=== PATIENT | female | born 1980 | race Caucasian/White ===

== ENCOUNTER 2016-05-05 22:34 | Inpatient (IN) ==
[2016-05-05] MEDS ORDERED: LACTATED RINGERS 2,000 ML IV ONE (22:55)
--- NOTE | 2016-05-05 23:10 | Emergency Department Note ---
Farhat Padilla Brittany, am scribing for, and in the presence of, Randy Alonzo MD 22:58. Clinton Padilla Robert M, MD, personally performed the services described in this documentation, ascribed by Milka Dougherty in my presence, and it is both accurate and complete . Arrival - Arrival Chief Complaint: Seizure Stated Complaint: sepsis ED Nursing Triage Note: pt transferred here from [facility] for seizures times 2 and possible sepsis. pt had an iud removed [address] rogers and has been on augmentin then today turned red all over body and started seizing. Mode of Arrival: Ambulatory Limitations: No Limitations Source: Patient, RN Notes Reviewed - History of Present Illness HPI Narrative: Patient is a 36 y/o white female presenting to the ED by EMS from [facility] for seizures and possible sepsis. Patient had IUD removed about a week ago per Dr. Rogers and has been on Augmentin. Patient today, became erythematous all over and began to start seizing. and family thinks that current symptoms may be an allergic reaction and are very concerned. He states that patient had IUD removed because it had been 10 years since placement and "it was time to come out." He reports that since removal of IUD patient has not been herself. He notes that after IUD removal patient had a pap smear that was abnormal and is concerned that this may have contributed to current situation. He reports that patient has had a fever with this at a high of 103. In room patient is hypotensive with blood pressure of 63/38 and is tachycardic with a heart rate of 105 beats per minute. Patient has a history of seizures and is on Topamax for this. No other complaint/pain in the ED at this time. Allergies/Adverse Reactions: Allergies Allergy/AdvReac Type Severity Reaction Status Date / Time carbamazepine [From Tegretol] Allergy Severe Hypotension Verified 12/24/15 09:00 meclizine [From Antivert] Allergy Severe Swelling Verified 12/24/15 09:00 of Lip/Tongue/Throat morphine Allergy Severe Swelling Verified 12/24/15 09:00 of Lip/Tongue/Throat Penicillins Allergy Severe RASH Verified 12/24/15 09:00 phenobarbital Allergy Severe Hypotension Verified 12/24/15 09:00 phenytoin [From Dilantin] Allergy Severe Hypotension Verified 12/24/15 09:00 [employer] AdvReac Hypotension Uncoded 12/31/14 10:08 Review of System - Review of System 12 point system: reviewed and no additional remarkable complaints except as stated - Review of System Constitutional: Present: fever Skin: Present: change in color (erythematous) Neurological: Present: other (seizures x2) Medical,Surgical,& Family Hx - Medical History Neurology: History of: Seizures - Social History Smoking Status: Unknown if ever smoked Frequency of Alcohol Use: Unknown Type of Drug Use: Unknown Exam Vital Signs: Vital Signs Temperature 98.4 F 05/05/16 22:35 Pulse Rate 109 H 05/05/16 22:35 Respiratory Rate 20 05/05/16 22:54 Blood Pressure 62/36 05/05/16 22:35 O2 Sat by Pulse Oximetry 100 05/05/16 22:35 - General General appearance: alert, in no apparent distress - Head Head exam: Present: atraumatic, normocephalic - Eye Eye exam: Present: PERRL, EOMI - ENT ENT exam: Present: mucous membranes moist, TM's normal bilaterally - Neck Neck exam: Present: full ROM, trachea midline. Absent: tenderness - Chest Chest inspection: Present: symmetric chest wall rise. Absent: tenderness - Respiratory Respiratory exam: Present: normal lung sounds bilaterally. Absent: rales, rhonchi, wheezes - Cardiovascular Cardiovascular exam: Present: normal rhythm, tachycardia, normal heart sounds, other (hypotensive bp 63/38). Absent: regular rate, murmur, rubs, gallop - Abdominal Exam Abdominal exam: Present: soft, normal bowel sounds. Absent: distention, tenderness - Extremities Exam Extremities exam: Present: full ROM. Absent: tenderness - Back Exam Back exam: Present: full ROM. Absent: tenderness - Neurological Exam Neurological exam: Present: alert, oriented X3, CN II-XII intact. Absent: motor sensory deficit - Psychiatric Psychiatric exam: Present: normal affect, normal mood - Skin Skin exam: Present: warm, dry, intact, rash (general diffuse erythematous rash ) , erythema. 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 The paramedics were hesitant to start pressors because all pressures contained a phenol ring. This being said, she received epinephrine intravenously at [facility] and this does not seem to have caused any long-term issues. She does have a diffusely spread reddened rash which I feel is more likely toxic shock syndrome related/sepsis than an allergic reaction. Time: 23:07 Results - Labs Lab Results: I have reviewed the patients labs Labs: Lactic Acid 7.8 MMOL/L (0.4-2.0) H 05/05/16 00:17 Critical Care Time Critical Care Time: Yes Total Critical Care Time: 47 Disposition Clinical Impression: Sepsis, Epileptic seizure, Hypotension Case discussed with: patient, patient's family Disposition: Still a Patient Condition: Stable Time of Disposition: 23:09
[2016-05-05] MEDS ORDERED: NOREPINEPHRINE 4 MG/4 ML VIAL IV ONE (23:17)
[2016-05-05] MEDS: NOREPINEPHRINE 8 MG in SODIUM CHLORIDE 0.9% 242 ML IV SCH (23:35)
[2016-05-05] MEDS ORDERED: LORazepam 2 MG/1 ML VIAL ONE (23:52)
--- NOTE | 2016-05-06 01:04 | Hospitalist History & Physical ---
Assessment and Plan (1) Septic shock Status: Acute Current Visit: Yes (2) Sepsis Status: Acute Current Visit: Yes (3) Epileptic seizure Status: Acute Current Visit: Yes (4) Hypotension Status: Acute Assessment and plan: Plan for this patient #1 admit the patient to ICU #2 treat his septic shock. She is received several liters of fluid from both our hospital and [facility] #3 IV antibiotics #4 Transvaginal ultrasound stat #5 CT scan without contrast on her way to the unit #6 infectious disease consult Current Visit: Yes History of Present Illness Chief complaint: transfer from outside hospital for sepsis History of present illness: Ms. Cuellar is a 36 year old female with history significant for seizure and thyroid disorder presents to our hospital as a transfer from [facility]. Reviewing the history with the family patient had IUD removed 1 week ago. According to her friends she had had made comments about some bleeding out of her vagina and some tissue that had been coming out. Patient has not really had any complaints about abdominal pain. She reports having had some sinus issues. And she took 1 Augmentin yesterday. She did not realize that she had a pin Cillo allergy and that Augmentin was penicillin but she only took 1 pill. She woke up Monday morning it to 30 she was throwing up and had diarrhea. She went to her primary care doctor and was given atria and told she had a viral infection. She was sent back home her family checked her blood pressure and it was 67/49 with a pulse of 150. couldn't [facility]. And at [facility] a pulse of 157 was documented with a temperature of 101. O2 sats are stable at 96% and have been stable while patient's been up to our hospital. Patient was given 3 L bolus up at [facility]. She was also given Solu- Medrol therapy Benadryl and Valium. She was started on normal saline at 250 mL an hour. When she arrives up here patient was given 2 L bolus of lactated Ringer's. We've had put the patient on pressors. I've ordered a vaginal ultrasound given the recent history of an IUD removal. Blood cultures were drawn at the outside facility and a lactate level was elevated. Patient had a CT scan scan of her head because she had a seizure at the outside facility. It was normal she does have a history of seizures and is on Topamax I was consulted to admit the patient. Patient appears to be in septic shock. Allergies Allergy/AdvReac Type Severity Reaction Status Date / Time carbamazepine [From Tegretol] Allergy Severe Hypotension Verified 12/24/15 09:00 meclizine [From Antivert] Allergy Severe Swelling Verified 12/24/15 09:00 of Lip/Tongue/Throat morphine Allergy Severe Swelling Verified 12/24/15 09:00 of Lip/Tongue/Throat Penicillins Allergy Severe RASH Verified 12/24/15 09:00 phenobarbital Allergy Severe Hypotension Verified 12/24/15 09:00 phenytoin [From Dilantin] Allergy Severe Hypotension Verified 12/24/15 09:00 [employer] AdvReac Hypotension Uncoded 12/31/14 10:08 Medical,Surgical,& Family Hx - Medical History Neurology: History of: Seizures - Surgical History Reproductive Surgeries: Surgical HX of;: Section - Family History Family History: Reports;: Family Diabetes, Family Heart Disease, Family Hypertension - Social History Smoking Status: Unknown if ever smoked Frequency of Alcohol Use: Unknown Type of Drug Use: Unknown 12 point system: reviewed and no additional remarkable complaints except as stated Exam - Constitutional Vitals: Period Temp Pulse Resp BP Sys/Bartlett Pulse Ox Last 24 Hr 98.4 F 109 17-20 62/36 100 - General General appearance: Clearly sick and toxic appearing - Head Head exam: Present: atraumatic, normocephalic - Eye Eye exam: Present: PERRL, EOMI - ENT ENT exam: Present: mucous membranes moist, TM's normal bilaterally - Neck Neck exam: Present: full ROM, trachea midline. Absent: tenderness - Chest Chest inspection: Present: symmetric chest wall rise. Absent: tenderness - Respiratory Respiratory exam: Present: normal lung sounds bilaterally. Absent: rales, rhonchi, wheezes - Cardiovascular Cardiovascular exam: Present: normal rhythm, tachycardia, normal heart sounds - Abdominal Exam Abdominal exam: Present: soft, normal bowel sounds. Absent: distention, tenderness - Extremities Exam Extremities exam: Present: full ROM. Absent: tenderness - Back Exam Back exam: Present: full ROM. Absent: tenderness - Neurological Exam Neurological exam: Present: alert, oriented X3, CN II-XII intact. Absent: motor sensory deficit - Psychiatric Psychiatric exam: Present: normal affect, normal mood - Skin Skin exam: Present: warm, dry, intact, rash more located on the center of her chest, erythema. Absent: normal color Results - Labs Labs: Labs from outside facility glucose 171 BUN 18 creatinine 2.1 calcium 8.2 sodium 131 potassium 3.7 chloride 99 bicarbonate 10 and I'll get 26.2 urinalysis negative nitrites trace leukocytes white count 26.8 hemoglobin 12.9 hematocrit 39.5 platelets 295
[2016-05-06] MEDS ORDERED: LORazepam 2 MG/1 ML VIAL IV STA (01:12)
[2016-05-06] MEDS ORDERED: ALBUTEROL 2.5 MG/3 ML NEB RESP TX PRN (01:15)
[2016-05-06] MEDS ORDERED: LORazepam 2 MG/1 ML VIAL IV PRN (01:28)
[2016-05-06] MEDS ORDERED: ONDANSETRON 4 MG/2 ML VIAL IV PRN (01:29)
[2016-05-06 02:23] LABS: ABG Base Excess -10.8 MMOL/L (-2.5-2.5); ABG Oxygen Saturation 98.8 % (95-100); ABG PCO2 28.8 MM HG (35-48); ABG PH 7.306 (7.35-7.45); ABG TCO2 12.9 MMOL/L (23-27)
[2016-05-06] MEDS: SODIUM CHLORIDE 0.9% 1,000 ML IV SCH ×7 (03:00→23:19)
[2016-05-06] MEDS: AZTREONAM 2,000 MG in SODIUM CHLORIDE 0.9% 100 ML IV SCH ×3 (03:20→12:01)
[2016-05-06] MEDS: PANTOPRAZOLE 40 MG VIAL IV SCH (03:26)
[2016-05-06] MEDS ORDERED: VANCOMYCIN INJ 1,500 MG in SODIUM CHLORIDE 0.9% 500 ML IV ONE (04:00)
[2016-05-06 05:48] LABS: Basophils % 0.1 % (0.0-0.8); Eosinophils % 0.1 % (0.00-10.9); Hematocrit 28.8 VOL% (35.7-47.0); Hemoglobin 9.3 GM/DL (12.0-16.0); Immature Granulocytes % 0.9 %; Immature Granulocytes Absolute 0.17 #; Lymphocytes # 0.3 10*3/uL (1.4-4.0); Lymphocytes % 1.6 % (21.3-54.2); Mean Corpuscular HGB Conc 32.3 GM/DL (32-36); Mean Corpuscular Hemoglobin 28 PG (27-34); Mean Corpuscular Volume 87.8 FL (87-102); Mean Platelet Volume 11.3 FL (9.6-12.0); Monocytes # 0.3 10*3/uL (0.11-0.8); Monocytes % 1.4 % (1.7-12.7); Neutrophils # 17.4 10*3/uL (1.4-7.4); Neutrophils % 95.9 % (38.7-73.9); Platelet Count 184 10*3/uL (130-400); Red Blood Count 3.28 10*6/uL (3.8-5.5); White Blood Count 18.2 10*3/uL (4.5-13.71)
[2016-05-06 05:58] LABS: INR 1.3; PT Patient Result 14.2 SECS
[2016-05-06 06:26] LABS: Band Neutrophils 7 % (0-10); Burr Cells Slight; Elliptocytes Few; Hypochromasia 1+; Lymphocytes 1 % (20-55); Platelet Estimate Normal; Segmented Neutrophils 92 % (50-85); Total Cells Counted 100
--- NOTE | 2016-05-06 06:37 | Ultrasound Report ---
US transvaginal Indication: IUD removal 3 days ago. Sepsis. Pelvic ultrasound: Initial transabdominal images followed with endovaginal imaging the bladder CA retroverted uterus. Uterus is 61 x 36 x 43 mm. There is fluid in the endometrial canal. Endometrial stripe thickness is 6 mm. 3 mm nabothian cyst identified as well. No foreign object seen on ultrasound. The right ovary is 29 x 17 x 26 mm containing a 17 mm simple cyst. Left ovary is 21 x 15 x 14 mm with normal-appearing follicles. Color Doppler flow is present bilaterally. Small amount of free fluid in the cul-de-sac noted. Impression: 1. Fluid in the endometrial canal. 2. Small amount of free fluid in the pelvis. 3. Right ovarian cyst. PROCEDURE INTERPRETED AT [facility] DEPARTMENT OF RADIOLOGY Final Report Signed by: Robinson You M.D.
--- NOTE | 2016-05-06 06:44 | CT Report ---
CT abdomen pelvis wo con Indication: Sepsis. CT ABDOMEN AND PELVIS WITHOUT CONTRAST DLP: 453 mGy*cm Comparison: None. Technique: Axial noncontrast CT images of the abdomen and pelvis were obtained. Abdomen: Normal heart size. Peripheral opacification of the posterior right lung base noted, either atelectasis or early pneumonia. Pleural spaces are clear. Multiple mixed calcified and cholesterol gallstones noted. Gallbladder is modestly distended. Unenhanced liver, pancreas, adrenal glands and spleen are within normal limits. At least 3 stones are present in the left kidney, largest is 2 mm diameter. Left kidney is nonobstructed. On the right, no nephrolithiasis is shown at the right kidney is minimally hydronephrotic. Right ureter is normal in size. No ureter calculi seen on either side. There is a Sams catheter present in the bladder which is decompressed. No bowel obstruction. No lymphadenopathy. Pelvis: Normal appendix without inflammation. Rectosigmoid colon is within normal limits. By CT, the uterus and adnexal structures appear unremarkable. Trace amount of free fluid identified in the pelvis on recent ultrasound is not seen on CT. Impression: 1. Minimal right hydronephrosis without hydroureter. Query recently passed stone. No significant perinephric inflammation. 2. Nonobstructing left kidney stones. 3. Cholelithiasis with mildly distended gallbladder. PROCEDURE INTERPRETED AT [facility] DEPARTMENT OF RADIOLOGY Final Report Signed by: Robinson You M.D.
--- NOTE | 2016-05-06 06:44 | XRay Report ---
XR chest 1V portable Indication: Sepsis. Chest one view: Comparison 05/05/16. Heart size remains normal with normal mediastinal contour. No new infiltrates are shown. Lungs are somewhat hypoinflated with pulmonary vascular crowding centrally. Impression: Mild pulmonary hypoinflation. PROCEDURE INTERPRETED AT [facility] DEPARTMENT OF RADIOLOGY Final Report Signed by: Robinson You M.D.
[2016-05-06 07:54] LABS: Lactic Acid 1.1 MMOL/L (0.4-2.0)
[2016-05-06 07:55] LABS: Alanine Aminotransferase 18 U/L (13-56); Albumin 2.3 G/DL (3.4-5.0); Alkaline Phosphatase 49 U/L (45-117); Aspartate Amino Transferase 19 U/L (0-37); Bilirubin,Total < 0.39 MG/DL (0.2-1.0); Blood Urea Nitrogen 13 MG/DL (7-18); Calcium 6.8 MG/DL (8.5-10.1); Glucose 132 MG/DL (74-106); Osmolality,Calculated 293.4 MOS/KG (273-304); Potassium 4.1 MMOL/L (3.5-5.1); Sodium 147 MMOL/L (136-145); Total Protein 4.7 G/DL (6.4-8.3)
[2016-05-06] MEDS: LEVOTHYROXINE 75 MCG TABLET PO SCH (09:40)
[2016-05-06] MEDS: TOPIRAMATE 100 MG TABLET PO SCH ×2 (09:40→20:20)
--- NOTE | 2016-05-06 10:40 | Hospitalist Progress Note ---
Assessment and Plan - Time spent with patient Time spent with patient: Greater than 30 minutes (1) Septic shock Status: Acute Assessment and plan: Source is unknown at this time. CT Abdomen pelvis is not very telling. CXray is unremarkable. UA pending. Possible source. ID consult pending. Obtain UA/UCx. Current Visit: Yes (2) Epileptic seizure Status: Acute Assessment and plan: Continue home medications. Current Visit: Yes Hospitalist: Subjective Interval history: No complaints currently, feeling much better. She was admitted overnight with sepsis to the ICU, requires pressor support still. Exam - Constitutional Vitals: Period Temp Pulse Resp BP Sys/Bartlett Pulse Ox Last 24 Hr 98.4 F 70-101 13-20 73-98/41-68 97-100 General appearance: no acute distress - Head Head exam: Present: normocephalic, atraumatic - Eye Eye exam: Present: EOMI Pupils: Present: LINDSAY - ENT ENT exam: Present: normal exam - Neck Neck exam: Present: normal inspection - Respiratory Respiratory exam: Present: clear to auscultation bilaterally. Absent: rhonchi, wheezes - Cardiovascular Cardiovascular exam: Present: regular rate and rhythm. Absent: gallop, rubs, systolic murmur - GI/Abdominal GI/Abdominal exam: Present: normal bowel sounds, soft. Absent: distended, firm , guarding, tenderness, rebound - Extremities Exam Extremities exam: Present: normal inspection. Absent: calf tenderness, edema Results - Labs CBC & BMP: 05/06/16 04:26 05/06/16 07:02 Lab Results: I have reviewed the past 24 hour labs
--- NOTE | 2016-05-06 10:45 | Infectious Disease Consult ---
Assessment and Plan (1) Epileptic seizure Status: Acute Current Visit: Yes (2) Hypotension Status: Acute Assessment and plan: IT could be due to sepsis however no focus of infection obvious on questioning her or from examination. She says her normal BP is about 90/60 so we may be able to stop the pressors and monitor. Recommendations: Continue empiric antibiotics pending results of cultures. if her blood cultures end up being negative, then we will be able to stop the antibiotics. Current Visit: Yes (3) Septic shock Status: Acute Assessment and plan: I am not sure yet that she is septic. She does have leukocytosis but that could be a stress response. her presentation could just be related to a severe allergic rxn to PCN. Agree with empiric antibiotics and we will see what the cultures show. Current Visit: Yes History of Present Illness Chief complaint: Sepsis History of present illness: Ms. Cuellar is a 36 year old female admitted last night with fever and hypotension. She was well until 3 days ago when she started having "sinus trouble" with runny nostrils and post nasal drip. She took Augmentin 2 days ago and later in the day developed fever, low blood pressure and redness over her body. She sought medical attn and was given IVF; she was told she had an allergic rxn. After she went back home however her BP got low again to 40/20 and she had fever to 103 so she came to the ER. She was admitted to ICU due to persisting hypotension requiring pressors. She said she had fever in ER but none since in ICU. She has no more "sinus problems " denying cough, SOB, headache; also no N, V. D and her appetite is fairly ok. No irritative urinary symptoms. She had her IUD removed 1 week ago, but has not had vaginal discharge or foul odor of pelvic pain. Home Medications Medication Instructions Recorded Confirmed Type Levothyroxine Tab [Synthroid Tab] 75 mcg PO DAILY@0700 05/06/16 05/06/16 History Topiramate [Topamax] 100 mg PO BID 05/06/16 05/06/16 History Allergies Allergy/AdvReac Type Severity Reaction Status Date / Time carbamazepine [From Tegretol] Allergy Severe Hypotension Verified 12/24/15 09:00 meclizine [From Antivert] Allergy Severe Swelling Verified 12/24/15 09:00 of Lip/Tongue/Throat morphine Allergy Severe Swelling Verified 12/24/15 09:00 of Lip/Tongue/Throat Penicillins Allergy Severe RASH Verified 12/24/15 09:00 phenobarbital Allergy Severe Hypotension Verified 12/24/15 09:00 phenytoin [From Dilantin] Allergy Severe Hypotension Verified 12/24/15 09:00 [employer] AdvReac Hypotension Uncoded 12/31/14 10:08 12 point system: reviewed and no additional remarkable complaints except as stated (she had 3 seizures over the pas 24hrs. rest of comprehensive ROS negatgive apart from what was mentioned in HPI) Medical,Surgical,& Family Hx - Medical History Neurology: History of: Seizures Endocrine: History of: Thyroid Disorder Genitourinary: History of: Recurring Urinary Tract Infections Gastrointestinal: History of: GI Problems Musculoskeletal: History of: Back/Neck Problems, Herniated Disk Reproductive: History of: Abnormal Pap Smear Other: History of: Anaphylaxis Comment Only: Miscellaneous Medical Problems (allergic reactions) - Surgical History Thoracic Surgeries: Patient denies;: Lobectomy Neurologic Surgeries: Patient denies: Neurologic Surgery Abdominal Surgeries: Patient denies: Abdominal Surgery, Splenectomy Reproductive Surgeries: Surgical HX of;: Section - Family History Family History: Reports;: Family Diabetes, Family Heart Disease, Family Hypertension - Social History Smoking Status: Unknown if ever smoked Frequency of Alcohol Use: Unknown Type of Drug Use: Unknown Infectious Disease Exam H&P - Constitutional Vitals: Vital Signs Temp Pulse Resp BP Pulse Ox 98.4 F 95 H 14 93/57 98 05/06/16 02:32 05/06/16 06:58 05/06/16 10:00 05/06/16 06:58 05/06/16 06:58 Intake and Output 05/05/16 05/06/16 05/06/16 23:59 07:59 15:59 Intake Total 70 / 70 1580 / 1580 Output Total 1115 / 1165 Balance -1045 / -1095 1580 / 1580 Intake: IV 70 / 70 1580 / 1580 Levophed 8 mg In Ns 242 70 / 70 80 / 80 ml @ 2 MCG/MIN 3.75 mls/ hr IV TITRATE JAEL Rx#: [id number] Ns 1,000 ml @ 200 mls/hr 1000 / 1000 IV .Q5H JAEL Rx#: [id number] Vancomycin Inj 1,000 mg 500 / 500 In Ns 500 ml @ 250 mls/hr IV ONCE ONE Rx#: [id number] Output: Urine 1115 / 1115 Other: Voiding Method Indwelling Catheter Weight 78.653 kg Patient Weight 05/06/16 23:59 Weight 78.653 kg Exam: General: Patient comfortable, non-toxic appearing HEENT: Mucous membranes pink and moist, anicteric acyanotic, eyes a but puffy, LINDSAY, no oropharyngeal exudates Neck: Supple, no thyroid gland enlargement, no lymphadenopathy Respiratory system: Breath sounds vesicular, no crepitations or wheezes Cardiovascular: Normal S1 and S2, no murmurs appreciated Abdomen: Normal bowel sounds, soft nontender throughout, no organomegaly or mass Genitourinary: No suprapubic pain or bladder distention Extremities: no edema Skin: diffuse erythroderma mainly involving trunk and thighs Reports - Labs CBC & BMP: 05/06/16 04:26 05/06/16 07:02 Labs: Laboratory Results - last 24 hr 05/06/16 05/06/16 05/06/16 02:07 04:26 04:26 WBC 18.2 H RBC 3.28 L Hgb 9.3 L Hct 28.8 L MCV 87.8 MCH 28 MCHC 32.3 RDW 14.0 Plt Count 184 MPV 11.3 Neut % (Auto) 95.9 H Lymph % (Auto) 1.6 L [place] % (Auto) 1.4 L Eos % (Auto) 0.1 Baso % (Auto) 0.1 Neut # (Auto) 17.4 H Lymph # (Auto) 0.3 L [place] # (Auto) 0.3 Eos # (Auto) 0.0 Baso # (Auto) 0.0 Total Counted 100 Immature Gran % 0.9 Nucleated RBC % 0.0 Immature Gran # 0.17 Segmented Neutrophils 92 H Band Neutrophils 7 Lymphocytes 1 L Nucleated RBCs # 0.00 Platelet Estimate Normal Hypochromasia 1+ Melissa Cells Slight Elliptocytes Few Morphology Comment INR PT Patient/Control Mix ABG pH 7.306 L ABG pCO2 28.8 L ABG pO2 143.0 H ABG HCO3 16.0 L ABG Total CO2 12.9 L ABG O2 Saturation 98.8 ABG Base Excess -10.8 L FiO2 28.00 Sodium Potassium Chloride Carbon Dioxide Anion Gap BUN Creatinine GFR Calculation BUN/Creatinine Ratio Glucose Calculated Osmolality Lactic Acid 1.2 Calcium Total Bilirubin AST ALT Alkaline Phosphatase Total Protein Albumin Globulin Albumin/Globulin Ratio 05/06/16 05/06/16 04:26 07:02 WBC RBC Hgb Hct MCV MCH MCHC RDW Plt Count MPV Neut % (Auto) Lymph % (Auto) [place] % (Auto) Eos % (Auto) Baso % (Auto) Neut # (Auto) Lymph # (Auto) [place] # (Auto) Eos # (Auto) Baso # (Auto) Total Counted Immature Gran % Nucleated RBC % Immature Gran # Segmented Neutrophils Band Neutrophils Lymphocytes Nucleated RBCs # Platelet Estimate Hypochromasia Melissa Cells Elliptocytes Morphology Comment INR 1.3 PT Patient/Control Mix 14.2 ABG pH ABG pCO2 ABG pO2 ABG HCO3 ABG Total CO2 ABG O2 Saturation ABG Base Excess FiO2 Sodium 147 H Potassium 4.1 Chloride 121 H Carbon Dioxide 14 L Anion Gap 16.1 H BUN 13 Creatinine 0.90 GFR Calculation 91 BUN/Creatinine Ratio 14.00 Glucose 132 H Calculated Osmolality 293.4 Lactic Acid 1.1 Calcium 6.8 L Total Bilirubin < 0.39 AST 19 ALT 18 Alkaline Phosphatase 49 Total Protein 4.7 L Albumin 2.3 L Globulin 2.4 Albumin/Globulin Ratio 0.9 L - Diagnostic Findings Procedure: Chest x-ray: report reviewed by me (unremarkable), CT Abdomen and Pelvis: report reviewed by me (unremarkable except mild Rt hydronephrosis without hydroureter), Ultrasound: report reviewed by me (pelvic US unremarkable)
[2016-05-06 12:30] LABS: Apearance,Urine CLEAR (Clear); Bacteria,Urine Occasional /HPF (Few); Bilirubin,Urine Negative (Negative); Blood, Urine Negative (Negative); Glucose,Urine (UA) Negative (Negative); Ketones,Urine Negative (Negative); Mucus,Urine Occasional /LPF (Occasional); Nitrite,Urine Negative (Negative); Protein,Urine Negative; Urine Color Yellow (Yellow); Urine Specific Gravity 1.013 (1.001-1.035); Urine Urobilinogen < 2.0 EU/DL (0.2-1.0); WBC,Urine 1 /HPF (0-6)
[2016-05-06] MEDS ORDERED: diphenhydrAMINE 50 MG/1 ML VIAL ONE (14:23)
[2016-05-06] MEDS ORDERED: diphenhydrAMINE 50 MG/1 ML VIAL IV ONE (14:39)
[2016-05-06] MEDS: ACETAMINOPHEN 325 MG TABLET PO PRN ×2 (15:03→20:20)
[2016-05-06] MEDS: HYDROCORTISONE 100 MG VIAL IV SCH ×2 (15:45→22:49)
[2016-05-06] MEDS: VANCOMYCIN INJ 1,000 MG in SODIUM CHLORIDE 0.9% 250 ML IV SCH (18:24)
[2016-05-06] MEDS: NOREPINEPHRINE 8 MG in SODIUM CHLORIDE 0.9% 242 ML IV SCH ×2 (18:25→23:57)
[2016-05-06] MEDS: IBUPROFEN 800 MG TABLET PO PRN (18:52)
[2016-05-06] MEDS: diphenhydrAMINE CAP 25 MG CAPSULE PO PRN (19:45)
[2016-05-06] MEDS: FAMOTIDINE INJ 40 MG in SODIUM CHLORIDE 0.9% 100 ML IV SCH (21:05)
[2016-05-06] MEDS: CETIRIZINE 10 MG TABLET PO SCH (21:42)
[2016-05-07] MEDS: PANTOPRAZOLE 40 MG VIAL IV SCH (04:00)
[2016-05-07] MEDS: VANCOMYCIN INJ 1,000 MG in SODIUM CHLORIDE 0.9% 250 ML IV SCH ×2 (04:02→17:28)
[2016-05-07] MEDS: SODIUM CHLORIDE 0.9% 1,000 ML IV SCH ×4 (04:02→14:46)
[2016-05-07] MEDS: NOREPINEPHRINE 8 MG in SODIUM CHLORIDE 0.9% 242 ML IV SCH (06:18)
[2016-05-07] MEDS: LEVOTHYROXINE 75 MCG TABLET PO SCH (06:18)
[2016-05-07] MEDS: HYDROCORTISONE 100 MG VIAL IV SCH ×3 (07:00→22:30)
[2016-05-07 08:22] LABS: Basophils % 0.1 % (0.0-0.8); Eosinophils # 0.6 10*3/uL (0.0-0.87); Eosinophils % 3.3 % (0.00-10.9); Hematocrit 28.7 VOL% (35.7-47.0); Hemoglobin 9.3 GM/DL (12.0-16.0); Immature Granulocytes % 1.3 %; Immature Granulocytes Absolute 0.22 #; Lymphocytes # 0.2 10*3/uL (1.4-4.0); Lymphocytes % 1.3 % (21.3-54.2); Mean Corpuscular HGB Conc 32.4 GM/DL (32-36); Mean Corpuscular Hemoglobin 29 PG (27-34); Mean Platelet Volume 10.6 FL (9.6-12.0); Monocytes # 0.1 10*3/uL (0.11-0.8); Monocytes % 0.3 % (1.7-12.7); Neutrophils # 16.2 10*3/uL (1.4-7.4); Neutrophils % 93.7 % (38.7-73.9); Platelet Count 151 10*3/uL (130-400); Red Blood Count 3.26 10*6/uL (3.8-5.5); Red Cell Distribution Width 14.6 % (9.3-17.3); White Blood Count 17.2 10*3/uL (4.5-13.71)
[2016-05-07 09:01] LABS: Albumin 2.1 G/DL (3.4-5.0); Bilirubin,Total 0.7 MG/DL (0.2-1.0); Calcium 6.7 MG/DL (8.5-10.1); Osmolality,Calculated 295.3 MOS/KG (273-304); Potassium 3.5 MMOL/L (3.5-5.1); Total Protein 4.4 G/DL (6.4-8.3)
[2016-05-07] MEDS: IBUPROFEN 800 MG TABLET PO PRN (09:10)
[2016-05-07] MEDS: diphenhydrAMINE CAP 25 MG CAPSULE PO PRN ×3 (09:11→20:31)
[2016-05-07] MEDS: TOPIRAMATE 100 MG TABLET PO SCH ×2 (09:11→20:31)
--- NOTE | 2016-05-07 10:49 | Hospitalist Progress Note ---
Assessment and Plan - Time spent with patient Time spent with patient: Greater than 30 minutes (1) Shock Status: Acute Assessment and plan: This may not be sepsis given negative workup. Potential anaphylactic. Continue pressor support, hydrocortisone, H1 and H2 blockers. She continues to remain on vancomycin however this will likely be discontinued. Current Visit: Yes (2) Epileptic seizure Status: Acute Assessment and plan: Continue home medications. Current Visit: Yes Hospitalist: Subjective Interval history: Complains of some itching on her face and in her throat. Blood pressure is improving as is requiring less pressor support. She is no longer as flushed and she was yesterday. Exam - Constitutional Vitals: Period Temp Pulse Resp BP Sys/Bartlett Pulse Ox Last 24 Hr 98.6 F-103.7 F 65-119 12-29 72-117/35-87 88-100 General appearance: normal weight, no acute distress - Head Head exam: Present: normocephalic, atraumatic - Eye Eye exam: Present: EOMI Pupils: Present: LINDSAY - ENT ENT exam: Present: normal exam - Neck Neck exam: Present: normal inspection - Respiratory Respiratory exam: Present: other (some crackles at the bases bilaterally). Absent: rhonchi, wheezes - Cardiovascular Cardiovascular exam: Present: regular rate and rhythm. Absent: gallop, rubs, systolic murmur - GI/Abdominal GI/Abdominal exam: Present: normal bowel sounds, soft. Absent: distended, firm , guarding, tenderness, rebound - Extremities Exam Extremities exam: Present: normal inspection. Absent: calf tenderness, edema Results - Labs CBC & BMP: 05/07/16 08:16 05/07/16 08:15 Lab Results: I have reviewed the past 24 hour labs
[2016-05-07 12:01] LABS: Band Neutrophils 20 % (0-10); Burr Cells 3+; Eosinophils 12 % (0-10); Hypochromasia 1+; Lymphocytes 2 % (20-55); Platelet Estimate Adequate; Polychromasia Slight; Segmented Neutrophils 66 % (50-85); Total Cells Counted 100
[2016-05-07] MEDS: ACETAMINOPHEN 325 MG TABLET PO PRN ×2 (15:12→20:31)
[2016-05-07] MEDS ORDERED: PHENOL 1.4% THROAT SPRAY 177 ML BOTTLE PO PRN (17:12)
[2016-05-07] MEDS: FAMOTIDINE INJ 40 MG in SODIUM CHLORIDE 0.9% 100 ML IV SCH (20:34)
[2016-05-07] MEDS: CETIRIZINE 10 MG TABLET PO SCH (20:34)
[2016-05-08] MEDS: NOREPINEPHRINE 8 MG in SODIUM CHLORIDE 0.9% 242 ML IV SCH ×2 (00:30→23:47)
[2016-05-08 04:34] LABS: Eosinophils # 0.1 10*3/uL (0.0-0.87); Eosinophils % 1.7 % (0.00-10.9); Hematocrit 27.4 VOL% (35.7-47.0); Hemoglobin 8.8 GM/DL (12.0-16.0); Immature Granulocytes % 0.4 %; Immature Granulocytes Absolute 0.03 #; Lymphocytes # 0.7 10*3/uL (1.4-4.0); Lymphocytes % 7.8 % (21.3-54.2); Mean Corpuscular HGB Conc 32.1 GM/DL (32-36); Mean Corpuscular Hemoglobin 28 PG (27-34); Mean Platelet Volume 11.6 FL (9.6-12.0); Monocytes # 0.1 10*3/uL (0.11-0.8); Monocytes % 1.3 % (1.7-12.7); Neutrophils # 7.5 10*3/uL (1.4-7.4); Neutrophils % 88.8 % (38.7-73.9); Platelet Count 136 10*3/uL (130-400); Red Blood Count 3.15 10*6/uL (3.8-5.5); White Blood Count 8.5 10*3/uL (4.5-13.71)
[2016-05-08] MEDS: VANCOMYCIN INJ 1,000 MG in SODIUM CHLORIDE 0.9% 250 ML IV SCH (05:01)
[2016-05-08 05:05] LABS: Calcium 7.4 MG/DL (8.5-10.1); Potassium 3.8 MMOL/L (3.5-5.1)
[2016-05-08] MEDS: LEVOTHYROXINE 75 MCG TABLET PO SCH (06:19)
[2016-05-08] MEDS: PANTOPRAZOLE 40 MG VIAL IV SCH (06:19)
[2016-05-08] MEDS: diphenhydrAMINE CAP 25 MG CAPSULE PO PRN ×4 (06:25→20:29)
[2016-05-08] MEDS: HYDROCORTISONE 100 MG VIAL IV SCH (06:30)
[2016-05-08 07:04] LABS: Band Neutrophils 9 % (0-10); Burr Cells Slight; Eosinophils 2 % (0-10); Hypochromasia 1+; Lymphocytes 5 % (20-55); Platelet Estimate Adequate; Segmented Neutrophils 83 % (50-85); Total Cells Counted 100
[2016-05-08] MEDS: TOPIRAMATE 100 MG TABLET PO SCH ×2 (08:29→20:29)
[2016-05-08] MEDS ORDERED: HYDROCORTISONE 100 MG VIAL IV SCH (09:00)
--- NOTE | 2016-05-08 09:09 | EKG Report ---
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
--- NOTE | 2016-05-08 09:31 | Hospitalist Progress Note ---
Assessment and Plan - Time spent with patient Time spent with patient: Greater than 30 minutes (1) Shock Status: Acute Assessment and plan: Still requires infusion of levophed. I spoke with the family and they state her systolics have never run higher than 100. Vancomycin will be DC'd. Decrease solucortef dose. Current Visit: Yes (2) Epileptic seizure Status: Acute Assessment and plan: Continue home medications. Current Visit: Yes (3) Pulmonary edema Status: Acute Assessment and plan: Administer lasix and obtain echo. Current Visit: Yes Hospitalist: Subjective Interval history: She states she is feeling better today. She refused the vancomycin this morning as it made her itch yesterday. Exam - Constitutional Vitals: Period Temp Pulse Resp BP Sys/Bartlett Pulse Ox Last 24 Hr 99 F-100.9 F 47-109 15-32 65-127/33-84 90-100 General appearance: no acute distress - Head Head exam: Present: normocephalic, atraumatic - Eye Eye exam: Present: EOMI Pupils: Present: LINDSAY - ENT ENT exam: Present: normal exam - Neck Neck exam: Present: normal inspection - Respiratory Respiratory exam: Present: other (crackles at the bases). Absent: rhonchi, wheezes - Cardiovascular Cardiovascular exam: Present: regular rate and rhythm. Absent: gallop, rubs, systolic murmur - GI/Abdominal GI/Abdominal exam: Present: normal bowel sounds, soft. Absent: distended, firm , guarding, tenderness, rebound - Extremities Exam Extremities exam: Present: normal inspection. Absent: calf tenderness, edema Results - Labs CBC & BMP: 05/08/16 03:29 05/08/16 03:29 Lab Results: I have reviewed the past 24 hour labs
[2016-05-08] MEDS ORDERED: FUROSEMIDE 20 MG/2 ML VIAL IV ONE (09:33)
--- NOTE | 2016-05-08 11:07 | XRay Report ---
Exam: XR chest 1V portable Date: 05/08/2016 8:25 AM Indication: Hypotension Comparison: 05/06/2016 Technical:AP portable Findings: Low-volume right effusion atelectatic changes are present with mild interstitial thickening in the infrahilar regions bilaterally. The heart is mildly prominent. External cardiac leads are present. No pneumothorax. Impression: 1. Worsening radiographic findings with compared to previous study with increasing effusion in the right base and/or atelectatic change or infiltrate in the perihilar regions and right base PROCEDURE INTERPRETED AT [facility] DEPARTMENT OF RADIOLOGY Final Report Signed by: Dr. Hardy Rothman
[2016-05-08] MEDS: DEXTROSE 5% 1,000 ML IV SCH ×2 (13:00→23:00)
--- NOTE | 2016-05-08 16:10 | ECHO Report ---
Yeimi Cuellar Exam Date: 05/08/2016 11:02 Referring Physician: Technologist: Treva ALEJANDRO Age: 36 Ht (in): Wt (lb): Gender: F Exam Location: [facility] Echo Indications: pulmonary edema, sepsis, epileptic seizure, hypotension BP: / HR: Rhythm: Sinus Technical Quality: IMPRESSIONS Normal chamber sizes Normal LV systolic function, with ejection fraction estimated to be 60% without segmental wall motion normality 1+ tricuspid regurgitation with RVSP 20 mmHg plus RAP MEASUREMENTS (Male / Female) Normal Values 2D ECHO LV Diastolic Diameter PLAX 4.6 cm 4.2 - 5.9 / 3.9 - 5.3 cm LV Systolic Diameter PLAX 3.4 cm LV Fractional Shortening PLAX 25.2 % IVS Diastolic Thickness 1.0 cm 0.6 - 1.0 / 0.6 - 0.9 cm LVPW Diastolic Thickness 1.0 cm 0.6 - 1.0 / 0.6 - 0.9 cm RV Internal Dim ED PLAX 2.7 cm Aortic Root Diameter 2.3 cm LA Systolic Diameter LX 2.8 cm 3.0 - 4.0 / 2.7 - 3.8 cm DOPPLER TR Peak Velocity 221.0 cm/s TR Peak Gradient 19.5 mmHg FINDINGS Left Ventricle Normal left ventricular cavity size. Normal left ventricular size and systolic function, left ventricular ejection fraction is est Right Ventricle Normal right ventricular size. Right Atrium Normal right atrial size. Left Atrium Normal left atrial size. Mitral Valve Mildly thickened mitral valve with mild mitral regurgitation. Aortic Valve Aortic valve sclerosis without stenosis or regurgitation. Tricuspid Valve Morphologically normal tricuspid valve. [id number] tricuspid valve regurgitation. Tricuspid regurgitation velocities suggest a PAP of 19.5 mmHg + RAP. Pulmonic Valve Morphologically normal pulmonic valve. Trace pulmonary valve regurgitation. Pericardium No pericardial effusion. + pleural effusion. Aorta Normal size aortic root and proximal ascending aorta. Floyd Franklin (Electronically Signed) Final Date: 08 May 2016 16:09
[2016-05-08] MEDS: FAMOTIDINE INJ 40 MG in SODIUM CHLORIDE 0.9% 100 ML IV SCH (20:52)
[2016-05-08] MEDS: CETIRIZINE 10 MG TABLET PO SCH (20:52)
[2016-05-09] MEDS: PANTOPRAZOLE 40 MG VIAL IV SCH (04:28)
[2016-05-09 04:50] LABS: Eosinophils # 0.1 10*3/uL (0.0-0.87); Eosinophils % 2.4 % (0.00-10.9); Immature Granulocytes % 0.3 %; Immature Granulocytes Absolute 0.02 #; Lymphocytes # 1.7 10*3/uL (1.4-4.0); Lymphocytes % 29.8 % (21.3-54.2); Mean Corpuscular Hemoglobin 28 PG (27-34); Mean Corpuscular Volume 86.8 FL (87-102); Mean Platelet Volume 11.7 FL (9.6-12.0); Monocytes # 0.3 10*3/uL (0.11-0.8); Monocytes % 5.5 % (1.7-12.7); NRBC # 0.02 10*3/uL; Neutrophils # 3.6 10*3/uL (1.4-7.4); Platelet Count 118 10*3/uL (130-400); Red Blood Count 2.88 10*6/uL (3.8-5.5); White Blood Count 5.8 10*3/uL (4.5-13.71)
[2016-05-09 05:16] LABS: Calcium 7.4 MG/DL (8.5-10.1); Osmolality,Calculated 292.3 MOS/KG (273-304); Potassium 3.3 MMOL/L (3.5-5.1)
[2016-05-09 05:41] LABS: Hypochromasia 1+; Microcytosis 1+
[2016-05-09 05:42] LABS: Ovalocytes Slight; Platelet Estimate Adequate
[2016-05-09] MEDS: LEVOTHYROXINE 75 MCG TABLET PO SCH (06:03)
[2016-05-09] MEDS ORDERED: HYDROCORTISONE 100 MG VIAL IV SCH (09:00)
[2016-05-09] MEDS: TOPIRAMATE 100 MG TABLET PO SCH ×2 (09:25→20:59)
--- NOTE | 2016-05-09 10:22 | XRay Report ---
History short of breath Comparison 05/08/2016 The heart is mildly enlarged. There is been mild improvement of prior upper lobe vascular congestion and slight improvement of diffuse hazy bilateral opacities. Mild to moderate opacities remain with the right pleural effusion similar on the prior study Impression: Mild improvement with continued hazy bilateral infiltrates/edema PROCEDURE INTERPRETED AT [facility] DEPARTMENT OF RADIOLOGY Final Report Signed by: Dr. Aidee Hutchins
--- NOTE | 2016-05-09 12:42 | Infectious Disease Progress ---
Assessment and Plan (1) Epileptic seizure Status: Acute Current Visit: Yes (2) Hypotension Status: Acute Assessment and plan: No evidence of sepsis with all cultures negative. it seems her presentation was most likely related to allergic rxn to antibiotics. She has numerous allergies. Overall she is much better. Recommendations: Agree with stopping all antibiotics. I will sign off. Call again prn. D/W Dr Ding Current Visit: Yes (3) Septic shock Status: Ruled-out Assessment and plan: THis has been ruled out, likely allergic rxn, plus patient's BP is low at baseline. Current Visit: Yes Infectious Disease - PN: Subj Interval history: Events over the weekend noted - on Monday patient had generalized redness after a dose of aztreonam and I instructed the nurse to stop it and give her Benadryl prn. She subsequently over the weekend had redness and swelling of her lips with vancomycin and taht was stopped. She was weaned off pressors. Overall she says she feels much better today, no fever for about 48hrs/. Her appetite is good. She says she is at least 80% better, just a bit dizzy if she gets up quickly and her HR goes up. Infectious Disease Exam (PN) - Constitutional Vitals: Temp Pulse Resp BP Pulse Ox 100.1 F H 51 L 23 101/64 97 05/09/16 07:00 05/09/16 11:00 05/09/16 11:00 05/09/16 11:00 05/09/16 11:00 General appearance: no acute distress Exam: General appearance: no acute distress, non-toxic appearing - Eye Eye exam: Present: EOMI. no icterus Pupils: Present: LINDSAY - ENT ENT exam: there is some peeling of her lips and slightly redness and swelling, but no oral exudates - Respiratory Respiratory exam: vesicular BS, no crepitations or wheezes - Cardiovascular Cardiovascular exam: regular rate and rhythm, no murmurs - GI/Abdominal GI/Abdominal exam: normal bowel sounds, soft, non-tender, no organomegaly or mass - Extremities Exam Extremities exam: edema of 4 limbs noted - Skin Skin exam: erythematous macular rash over body, less prominent than last week Results - Labs CBC & BMP: 05/09/16 04:28 05/09/16 04:28 Lab Results: I have reviewed the past 24 hour labs (all cultures NGTD)
[2016-05-09] MEDS ORDERED: FUROSEMIDE 40 MG/4 ML VIAL IV ONE (12:48)
--- NOTE | 2016-05-09 12:57 | Hospitalist Progress Note ---
Assessment and Plan - Time spent with patient Time spent with patient: Greater than 30 minutes (1) Shock Status: Acute Assessment and plan: Resolved. Current Visit: Yes (2) Epileptic seizure Status: Acute Assessment and plan: Continue home medications. Current Visit: Yes (3) Pulmonary edema Status: Acute Assessment and plan: Administer lasix. Current Visit: Yes Hospitalist: Subjective Interval history: No complaints, had a tmax of 100.1. Exam - Constitutional Vitals: Period Temp Pulse Resp BP Sys/Bartlett Pulse Ox Last 24 Hr 98.8 F-100.1 F 44-84 16-30 80-110/44-66 91-100 General appearance: no acute distress - Head Head exam: Present: normocephalic, atraumatic - Eye Eye exam: Present: EOMI Pupils: Present: LINDSAY - ENT ENT exam: Present: normal exam - Neck Neck exam: Present: normal inspection - Respiratory Respiratory exam: Present: other (crackles at the bases). Absent: rhonchi, wheezes - Cardiovascular Cardiovascular exam: Present: regular rate and rhythm. Absent: gallop, rubs, systolic murmur - GI/Abdominal GI/Abdominal exam: Present: normal bowel sounds, soft. Absent: distended, firm , guarding, tenderness, rebound - Extremities Exam Extremities exam: Present: normal inspection. Absent: calf tenderness, edema Results - Labs CBC & BMP: 05/09/16 04:28 05/09/16 04:28 Lab Results: I have reviewed the past 24 hour labs
[2016-05-09] MEDS: ACETAMINOPHEN 325 MG TABLET PO PRN (14:19)
[2016-05-09] MEDS: FAMOTIDINE INJ 40 MG in SODIUM CHLORIDE 0.9% 100 ML IV SCH (20:59)
[2016-05-09] MEDS: CETIRIZINE 10 MG TABLET PO SCH (20:59)
[2016-05-09] MEDS: NOREPINEPHRINE 8 MG in SODIUM CHLORIDE 0.9% 242 ML IV SCH (23:57)
[2016-05-10] MEDS: DEXTROSE 5% 1,000 ML IV SCH ×3 (01:17→16:37)
[2016-05-10] MEDS: PANTOPRAZOLE 40 MG VIAL IV SCH (03:21)
[2016-05-10] MEDS: LEVOTHYROXINE 75 MCG TABLET PO SCH (06:23)
[2016-05-10 06:39] LABS: Eosinophils # 0.5 10*3/uL (0.0-0.87); Eosinophils % 7.2 % (0.00-10.9); Hematocrit 24.8 VOL% (35.7-47.0); Immature Granulocytes % 0.8 %; Immature Granulocytes Absolute 0.05 #; Lymphocytes # 3.4 10*3/uL (1.4-4.0); Lymphocytes % 51.5 % (21.3-54.2); Mean Corpuscular HGB Conc 32.3 GM/DL (32-36); Mean Corpuscular Hemoglobin 28 PG (27-34); Mean Corpuscular Volume 86.4 FL (87-102); Mean Platelet Volume 11.2 FL (9.6-12.0); Monocytes # 0.5 10*3/uL (0.11-0.8); Monocytes % 8.3 % (1.7-12.7); Neutrophils # 2.1 10*3/uL (1.4-7.4); Neutrophils % 32.2 % (38.7-73.9); Platelet Count 136 10*3/uL (130-400); Red Blood Count 2.87 10*6/uL (3.8-5.5); Red Cell Distribution Width 14.8 % (9.3-17.3); White Blood Count 6.5 10*3/uL (4.5-13.71)
[2016-05-10 07:01] LABS: Calcium 7.4 MG/DL (8.5-10.1); Osmolality,Calculated 290.4 MOS/KG (273-304); Potassium 2.9 MMOL/L (3.5-5.1)
[2016-05-10 07:06] LABS: Eosinophils 10 % (0-10); Hypochromasia 1+; Lymphocytes 43 % (20-55); Microcytosis 1+; Segmented Neutrophils 39 % (50-85); Total Cells Counted 100
[2016-05-10 07:07] LABS: Ovalocytes Slight; Platelet Estimate Adequate
[2016-05-10] MEDS: TOPIRAMATE 100 MG TABLET PO SCH ×2 (10:04→21:46)
[2016-05-10] MEDS ORDERED: POTASSIUM CHLORIDE 20 MEQ TABLET PO SCH (10:30)
--- NOTE | 2016-05-10 10:30 | XRay Report ---
Referring Physician: Dejah Nuno MD Exam: XR chest 1V portable Date: May 10, 2016 at 9:13 AM Reason: Sepsis, shortness of breath Comparison: Chest one view portable May 09, 2016 Findings: The cardiac silhouette is upper normal in size. There are perihilar and bibasilar opacities. This is concerning for pulmonary edema and atelectasis, but there could be superimposed pneumonia. No pneumothorax is identified, but there is mild bilateral pleural fluid. No acute osseous process is seen. Impression: There is increased opacification and pleural fluid at the left lower lung zone. The study is otherwise similar to before. PROCEDURE INTERPRETED AT [facility] DEPARTMENT OF RADIOLOGY Final Report Signed by: Dr. Sharan Boss
[2016-05-10] MEDS ORDERED: FUROSEMIDE 40 MG/4 ML VIAL IV ONE (12:29)
--- NOTE | 2016-05-10 13:36 | Hospitalist Progress Note ---
Assessment and Plan - Time spent with patient Time spent with patient: Greater than 30 minutes (1) Pulmonary edema Status: Acute Assessment and plan: Repeat Xray reveals mild improvement. Administer lasix. Current Visit: Yes (2) Epileptic seizure Status: Acute Assessment and plan: Continue home medications. Current Visit: Yes Hospitalist: Subjective Interval history: No complaints, no overnight events. Exam - Constitutional Vitals: Period Temp Pulse Resp BP Sys/Bartlett Pulse Ox Last 24 Hr 98.1 F-100.6 F 47-66 16-20 97-110/52-68 93-99 General appearance: no acute distress - Head Head exam: Present: normocephalic, atraumatic - Eye Eye exam: Present: EOMI Pupils: Present: LINDSAY - ENT ENT exam: Present: normal exam - Neck Neck exam: Present: normal inspection - Respiratory Respiratory exam: Present: other (crackles at the bases bilaterally). Absent: rhonchi, wheezes - Cardiovascular Cardiovascular exam: Present: regular rate and rhythm. Absent: gallop, rubs, systolic murmur - GI/Abdominal GI/Abdominal exam: Present: normal bowel sounds, soft. Absent: distended, firm , guarding, tenderness, rebound - Extremities Exam Extremities exam: Present: normal inspection. Absent: calf tenderness, edema Results - Labs CBC & BMP: 05/10/16 05:46 05/10/16 05:46 Lab Results: I have reviewed the past 24 hour labs
[2016-05-10] MEDS: CETIRIZINE 10 MG TABLET PO SCH (21:46)
[2016-05-10] MEDS: MUPIROCIN 2% OINT 22 GM TUBE TOP SCH (21:47)
[2016-05-10] MEDS: FAMOTIDINE INJ 40 MG in SODIUM CHLORIDE 0.9% 100 ML IV SCH (21:48)
[2016-05-11 06:19] LABS: Basophils % 0.1 % (0.0-0.8); Eosinophils # 0.6 10*3/uL (0.0-0.87); Eosinophils % 7.7 % (0.00-10.9); Hematocrit 31.6 VOL% (35.7-47.0); Hemoglobin 9.9 GM/DL (12.0-16.0); Immature Granulocytes % 2.6 %; Immature Granulocytes Absolute 0.21 #; Lymphocytes # 3.8 10*3/uL (1.4-4.0); Mean Corpuscular HGB Conc 31.3 GM/DL (32-36); Mean Corpuscular Hemoglobin 27 PG (27-34); Mean Corpuscular Volume 87.1 FL (87-102); Mean Platelet Volume 10.8 FL (9.6-12.0); Monocytes # 0.8 10*3/uL (0.11-0.8); Monocytes % 9.3 % (1.7-12.7); NRBC # 0.03 10*3/uL; Neutrophils # 2.8 10*3/uL (1.4-7.4); Neutrophils % 34.3 % (38.7-73.9); Platelet Count 198 10*3/uL (130-400); Red Blood Count 3.63 10*6/uL (3.8-5.5); Red Cell Distribution Width 14.8 % (9.3-17.3); White Blood Count 8.2 10*3/uL (4.5-13.71)
[2016-05-11 06:44] LABS: Elliptocytes Few; Eosinophils 8 % (0-10); Hypochromasia Slight; Lymphocytes 43 % (20-55); Platelet Estimate Normal; Segmented Neutrophils 44 % (50-85); Total Cells Counted 100
[2016-05-11 06:45] LABS: Microcytosis 1+
[2016-05-11] MEDS: PANTOPRAZOLE 40 MG VIAL IV SCH (06:48)
[2016-05-11] MEDS: LEVOTHYROXINE 75 MCG TABLET PO SCH (06:48)
[2016-05-11 06:50] LABS: Calcium 7.7 MG/DL (8.5-10.1); Osmolality,Calculated 293.3 MOS/KG (273-304); Potassium 3.5 MMOL/L (3.5-5.1)
[2016-05-11] MEDS ORDERED: FUROSEMIDE 40 MG/4 ML VIAL IV ONE (08:20)
--- NOTE | 2016-05-11 09:25 | Discharge Summary ---
Hospital Course - Hospital Course Hospital Course: Drug allergy/drug induced fever: Ms Cuellar was admitted to the ICU with drug allergy/fever. She had recently been prescribed augmentin for an URI. She developed diarrhea with nausea and vomiting. She eventually presented to [facility] where she was found to be hypotensive, fevered and tachycardic. She was transferred to [facility] with concern for septic shock. She was placed in the intensive care unit on blood pressure support and broad-spectrum antibiotics. Chest x-ray, urinalysis were unremarkable. Patient was stable but after receiving Aztreonam, immediately developed flushing and hypotension. Aztreonam was stopped, and she was started on steroids, H1/H2 blockers. Vancomycin continued. Infectious workup negative. She continued to fever, which was folllowed and noted to wane, and eventually vancomycin was discontinued after infectious etiology was unlikely. She was administered many liters of fluid for support, and Cxray/physical exam confirmed fluid overload which necessitated diuresis. Patient eventually became stable enough to discontinue steroids and blood pressure support and she was transferred to the floor where she was watched further. By discharge she had met maximum benefit of hospitalization. - Time spent with patient Time with patient DS: Greater than 30 minutes Diagnosis - Discharge Diagnosis (1) Pulmonary edema Status: Acute (2) Epileptic seizure Status: Acute Discharge Plan - Discharge Data Disposition: Disch To Home/Self Care Condition at Discharge: Stable Discharge Diet: advance to your usual diet Activity: resume usual activities as tolerated - Discharge Medications Continue Topiramate [Topamax] 100 mg PO BID Levothyroxine Tab [Synthroid Tab] 75 mcg PO DAILY@0700 - Follow Up or Referral Follow Up: , Primary Care Physician [Other] - 1 Week - Forms/Instructions Forms: Acute Care Work/School Release Exam - Constitutional Vitals: Period Temp Pulse Resp BP Sys/Bartlett Pulse Ox Last 24 Hr 98.1 F-99.1 F 66-82 18-19 98-105/58-64 92-99 General appearance: normal weight - Head Head exam: Present: normal inspection, normocephalic, atraumatic - Eye Eye exam: Present: EOMI Pupils: Present: LINDSAY - ENT ENT exam: Present: normal exam - Neck Neck exam: Present: normal inspection - Respiratory Respiratory exam: Present: clear to auscultation bilaterally - Cardiovascular Cardiovascular exam: Present: regular rate and rhythm - GI/Abdominal GI/Abdominal exam: Present: normal bowel sounds - Extremities Exam Extremities exam: Present: normal inspection Discharge Results Procedures and tests throughout hospitalization: Pending Orders 05/06/16 15:57 Blood Culture Stat Labs on day of discharge: Labs from last 24 hours 05/11/16 05/11/16 05:53 05:53 WBC 8.2 RBC 3.63 L D Hgb 9.9 L D Hct 31.6 L MCV 87.1 MCH 27 MCHC 31.3 L RDW 14.8 Plt Count 198 D MPV 10.8 Neut % (Auto) 34.3 L Lymph % (Auto) 46.0 [place] % (Auto) 9.3 Eos % (Auto) 7.7 Baso % (Auto) 0.1 Neut # (Auto) 2.8 Lymph # (Auto) 3.8 [place] # (Auto) 0.8 Eos # (Auto) 0.6 Baso # (Auto) 0.0 Total Counted 100 Immature Gran % 2.6 Nucleated RBC % 0.4 Immature Gran # 0.21 Segmented Neutrophils 44 L Lymphocytes 43 Monocytes 4 Eosinophils 8 Basophils 1.0 H Nucleated RBCs # 0.03 Platelet Estimate Normal Hypochromasia Slight Microcytosis 1+ Elliptocytes Few Sodium 148 H Potassium 3.5 Chloride 115 H Carbon Dioxide 20 L Anion Gap 16.5 H BUN 16 Creatinine 0.70 GFR Calculation 125 BUN/Creatinine Ratio 22.00 H Glucose 77 Calculated Osmolality 293.3 Calcium 7.7 L Preliminary micro results at discharge 05/06/16 15:57 Blood Culture - Preliminary Blood No growth at 3 days 05/06/16 15:35 Blood Culture - Preliminary Blood No growth at 3 days DS: Provider Date of admission: 05/06/16 01:15 Primary care physician: . No PCP Attending physician on admission: Dejah Ding MD Consults: 05/06/16 01:26 Consult to Pharmacy [CONS] Routine Reason for Pharmacy Consult: Dose/Manage Vancomycin 05/06/16 02:48 Consult to Pharmacy [CONS] Routine Reason for Pharmacy Consult: Adjust Meds Renal Funct Discharging clinician: Dejah Ding MD Expected date of discharge: 05/11/16
[2016-05-11] MEDS: TOPIRAMATE 100 MG TABLET PO SCH (10:24)
[2016-05-11] MEDS: MUPIROCIN 2% OINT 22 GM TUBE TOP SCH (10:24)
[2016-05-11 11:05] VITALS: BP 94/58
== END 2016-05-11 11:08 | disposition home or self-care (01) | DRG 312 ==
LOC: EDUNIT# → EDBD → N.ED 22:34 → N.EDINP 05-06 01:15 → N.CC 05-06 02:08 → N.5E 05-09 15:15
PROVIDERS: ADMIT Internal Medicine; ATTEND Internal Medicine

== ENCOUNTER 2019-11-07 09:40 | Inpatient (IN) ==
[2019-11-07] MEDS ORDERED: CLINDAMYCIN INJ 900 MG in PREMIX 1 EACH IV ONE (10:41)
[2019-11-07] MEDS ORDERED: FAMOTIDINE 20 MG/2 ML VIAL IV ONE (10:41)
[2019-11-07] MEDS ORDERED: CITRIC ACID/SODIUM CITRATE 30 ML UDCUP PO ONE (10:41)
[2019-11-07] MEDS ORDERED: LACTATED RINGERS 1,000 ML IV ONE (10:44)
[2019-11-07] MEDS ORDERED: OXYTOCIN 10 UNIT/ML VIAL IM ONE (10:45)
[2019-11-07] MEDS ORDERED: OXYTOCIN/LR 30 UNIT/1,000 ML BAG IV ONE (10:45)
[2019-11-07] MEDS ORDERED: OXYTOCIN/LR 20 UNIT/1,000 ML BAG IV ONE ×3 (10:46→14:53)
[2019-11-07] MEDS ORDERED: LACTATED RINGERS 1,000 ML IV SCH ×2 (11:00→15:00)
[2019-11-07 11:07] LABS: Basophils % 0.3 % (0.0-0.8); Eosinophils # 0.2 10*3/uL (0.0-0.87); Eosinophils % 1.2 % (0.00-10.9); Hematocrit 35.4 VOL% (35.7-47.0); Hemoglobin 11.1 GM/DL (12.0-16.0); Immature Granulocytes % 0.6 %; Immature Granulocytes Absolute 0.08 #; Lymphocytes # 2.2 10*3/uL (1.4-4.0); Lymphocytes % 17.3 % (21.3-54.2); Mean Corpuscular HGB Conc 31.4 GM/DL (32-36); Mean Corpuscular Volume 90.8 FL (87-102); Mean Platelet Volume 10.3 FL (9.6-12.0); Neutrophils % 76.6 % (38.7-73.9); Platelet Count 255 T/CUMM (130-400); Red Cell Distribution Width 16.3 % (9.3-17.3); White Blood Count 12.4 T/CUMM (4-12)
[2019-11-07] MEDS ORDERED: ACETAMINOPHEN 500 MG TABLET PO ONE (11:31)
[2019-11-07] MEDS ORDERED: NALOXONE 0.4 MG/ML VIAL IV PRN (12:16)
[2019-11-07] MEDS ORDERED: HYDROmorphone PCA 30 MG/30 ML SYRINGE IV SCH (12:30)
[2019-11-07] MEDS ORDERED: miSOPROStoL 200 MCG TABLET ONE (13:58)
[2019-11-07] MEDS ORDERED: TRANEXAMIC ACID 1,000 MG/10 ML VIAL ONE (13:58)
[2019-11-07] MEDS ORDERED: METHYLERGONOVINE 0.2 MG/1 ML AMP ONE (13:59)
[2019-11-07] MEDS ORDERED: CARBOPROST TROMETHAMINE 250 MCG/ML AMP IM ONE (13:59)
[2019-11-07] MEDS ORDERED: PHENYLEPHRINE 1 MG/10 ML SYRINGE IV ONE (14:39)
[2019-11-07] MEDS ORDERED: BUPIVACAINE SPINAL 0.75% 2 ML AMP SPINAL ONE (14:39)
[2019-11-07] MEDS ORDERED: propofoL 200 MG/20 ML VIAL IV ONE (14:39)
[2019-11-07] MEDS ORDERED: HYDROmorphone 2 MG/1 ML VIAL ONE (14:42)
[2019-11-07] MEDS ORDERED: SIMETHICONE CHEW 80 MG TABLET PO PRN (14:53)
[2019-11-07] MEDS ORDERED: ePHEDrine 50 MG/ML VIAL ONE (14:53)
[2019-11-07] MEDS ORDERED: ONDANSETRON 4 MG/2 ML VIAL IV PRN (14:53)
[2019-11-07] MEDS ORDERED: ACETAMINOPHEN 325 MG TABLET PO PRN (14:53)
[2019-11-07] MEDS ORDERED: RHO(D) IMMUNE GLOBULIN 300 MCG SYRINGE IM ONE (14:53)
[2019-11-07] MEDS ORDERED: IBUPROFEN 800 MG TABLET PO PRN (14:53)
[2019-11-07] MEDS ORDERED: ceFAZolin 1,000 MG in SYRINGE 1 EACH IV SCH (15:00)
[2019-11-07] MEDS ORDERED: PROMETHAZINE 25 MG/1 ML VIAL IM PRN (19:21)
[2019-11-07] MEDS: DOCUSATE SODIUM 100 MG CAPSULE PO SCH (21:17)
[2019-11-07] MEDS: CLINDAMYCIN INJ 900 MG in PREMIX 1 EACH IV SCH (22:50)
[2019-11-07 23:15] LABS: Basophils % 0.3 % (0.0-0.8); Eosinophils # 0.1 10*3/uL (0.0-0.87); Eosinophils % 0.5 % (0.00-10.9); Hemoglobin 9.8 GM/DL (12.0-16.0); Immature Granulocytes % 0.6 %; Immature Granulocytes Absolute 0.08 #; Lymphocytes # 1.6 10*3/uL (1.4-4.0); Lymphocytes % 12.4 % (21.3-54.2); Mean Corpuscular HGB Conc 31.6 GM/DL (32-36); Mean Corpuscular Volume 91.4 FL (87-102); Mean Platelet Volume 11.3 FL (9.6-12.0); Monocytes % 4.3 % (1.7-12.7); Neutrophils % 81.9 % (38.7-73.9); Red Blood Count 3.39 MC/CUMM (3.8-5.5); Red Cell Distribution Width 15.9 % (9.3-17.3); White Blood Count 12.9 T/CUMM (4-12)
[2019-11-07 23:19] LABS: Platelet Count 118 T/CUMM (130-400)
[2019-11-08 04:06] LABS: Hypochromasia 1+; Platelet Estimate Normal
[2019-11-08 05:22] LABS: Basophils % 0.2 % (0.0-0.8); Eosinophils # 0.1 10*3/uL (0.0-0.87); Eosinophils % 1.4 % (0.00-10.9); Hematocrit 30.3 VOL% (35.7-47.0); Hemoglobin 9.6 GM/DL (12.0-16.0); Immature Granulocytes % 0.5 %; Immature Granulocytes Absolute 0.05 #; Lymphocytes # 1.3 10*3/uL (1.4-4.0); Lymphocytes % 12.9 % (21.3-54.2); Mean Corpuscular HGB Conc 31.7 GM/DL (32-36); Mean Corpuscular Volume 90.2 FL (87-102); Mean Platelet Volume 10.5 FL (9.6-12.0); Monocytes % 4.8 % (1.7-12.7); Neutrophils % 80.2 % (38.7-73.9); Platelet Count 182 T/CUMM (130-400); Red Blood Count 3.36 MC/CUMM (3.8-5.5); Red Cell Distribution Width 15.9 % (9.3-17.3)
[2019-11-08] MEDS: CLINDAMYCIN INJ 900 MG in PREMIX 1 EACH IV SCH (06:40)
[2019-11-08] MEDS ORDERED: HYDROmorphone 2 MG TABLET PO PRN ×2 (07:17→09:39)
[2019-11-08] MEDS: MAGNESIUM HYDROXIDE SUSP 30 ML UDCUP PO PRN ×2 (09:21→21:31)
[2019-11-08] MEDS: MULTIVITAMIN (PRENATAL) TABLET PO SCH (09:21)
[2019-11-08] MEDS: DOCUSATE SODIUM 100 MG CAPSULE PO SCH ×2 (09:21→21:31)
[2019-11-08] MEDS ORDERED: diphenhydrAMINE CAP 25 MG CAPSULE ONE (11:30)
[2019-11-08] MEDS: diphenhydrAMINE CAP 25 MG CAPSULE PO PRN ×2 (11:40→20:17)
[2019-11-08] MEDS: METOCLOPRAMIDE 10 MG TABLET PO SCH ×2 (13:06→21:31)
[2019-11-08] MEDS ORDERED: hydrOXYzine HCL 25 MG TABLET PO PRN (20:48)
[2019-11-08] MEDS ORDERED: methylPREDNISolone SOD SUC 40 MG/1 ML VIAL IV SCH (21:00)
[2019-11-08] MEDS: methylPREDNISolone SOD SUC 40 MG/1 ML VIAL IM SCH (21:27)
[2019-11-09] MEDS: methylPREDNISolone SOD SUC 40 MG/1 ML VIAL IM SCH (05:00)
[2019-11-09] MEDS: METOCLOPRAMIDE 10 MG TABLET PO SCH (05:06)
[2019-11-09] MEDS ORDERED: diphenhydrAMINE 2% CREAM 28 GM TUBE TOP PRN (08:20)
[2019-11-09 08:26] VITALS: BP 100/63
[2019-11-09] MEDS: DOCUSATE SODIUM 100 MG CAPSULE PO SCH (08:30)
[2019-11-09] MEDS: MAGNESIUM HYDROXIDE SUSP 30 ML UDCUP PO PRN (08:30)
[2019-11-09] MEDS: MULTIVITAMIN (PRENATAL) TABLET PO SCH (08:30)
[2019-11-09] MEDS ORDERED: ACETAMINOPHEN 500 MG TABLET PO PRN (08:35)
[2019-11-09] MEDS ORDERED: DEXAMETHASONE 10 MG/1 ML VIAL IM ONE (08:38)
[2019-11-09] MEDS ORDERED: ACETAMINOPHEN 500 MG TABLET ONE (08:39)
[2019-11-09] MEDS ORDERED: AZITHROMYCIN 250 MG TABLET PO SCH (09:00)
[2019-11-09] MEDS ORDERED: FAMOTIDINE 20 MG TABLET PO SCH (09:22)
== END 2019-11-09 13:25 | disposition home or self-care (01) | DRG 785 ==
LOC: N.LD 09:40 → N.OB 20:30
PROVIDERS: ADMIT Obstetrics & Gynecology; ATTEND Obstetrics & Gynecology